=== PATIENT | male | born 1990 | race Two or more races ===

== ENCOUNTER 2021-07-06 10:39 | Emergency (ER) | payer OTHER ==
[2021-07-06 10:45] VITALS: BP 116/74; PULSE 83; TEMP 98; BMI 27.4
== END 2021-07-06 11:47 | disposition home or self-care (01) ==
LOC: JER 10:39 → JERFT 10:39
DX: H00.011 Hordeolum externum right upper eyelid (principal)
CPT/HCPCS: 99283-25